=== PATIENT | male | born 1945 | race Caucasian/White ===

== ENCOUNTER 2023-01-22 12:46 | Inpatient (IN) | payer OTHER ==
[~2023-01-22] VITALS: Ht 185.4 cm; Wt 108.0 kg
[2023-01-22 13:00] VITALS: BP_SYST 145; PULSE 93; RESP 18; TEMP 98.3; O2SAT 98
[2023-01-22 13:52] LABS: BASOPHILS % (AUTO) 0.9 % (0.0-2.0); EOSINOPHILS % (AUTO) 0.4 % (0.0-4.0); HEMOGLOBIN 13.3 g/dL (14.0-18.0); LYMPHOCYTES # (AUTO) 0.2 K/uL (1.0-5.5); LYMPHOCYTES % (AUTO) 7.6 % (20.5-51.5); MEAN CORPUSCULAR HEMOGLOBIN 32 pg (27-31); MEAN CORPUSCULAR HGB CONC 34 % (32-36); MEAN CORPUSCULAR VOLUME 95 fL (79.0-98.0); MONOCYTES # (AUTO) 0.2 K/uL (0.0-1.0); MONOCYTES % (AUTO) 7.2 % (1.7-9.3); NEUTROPHILS # (AUTO) 2.3 K/uL (1.8-7.7); NEUTROPHILS % (AUTO) 83.9 % (40.0-70.0); PLATELET COUNT (AUTO) 106 K/uL (130-430); RED BLOOD CELL COUNT(AUTO) 4.11 MIL/uL (4.2-6.2); RED CELL DISTRIBUTION WIDTH 15.5 % (9.0-15.0); WHITE BLOOD COUNT (AUTO) 2.7 K/uL (4.8-10.8)
[2023-01-22 14:11] LABS: ANION GAP 9 (5-15); CALCIUM 8.6 mg/dL (8.4-11.0); CARBON DIOXIDE 26 mmol/L (23-29); CHLORIDE 103 mmol/L (98-107); CREATININE 0.91 mg/dL (0.55-1.30); GLUCOSE 224 mg/dL (74-106); POTASSIUM 4.6 mmol/L (3.5-5.1); SODIUM SERUM 138 mmol/L (136-145); UREA NITROGEN, BLOOD 12 mg/dL (8-21)
[2023-01-22 14:12] LABS: PROTHROMBIN TIME 10.6 SECS (9.5-12.5)
[2023-01-22 14:58] LABS: ALANINE AMINOTRANSFERASE 23 U/L (12-78); ALBUMIN 3.4 g/dL (3.4-4.8); ASPARTATE AMINOTRANSFERASE 20 U/L (10-37); TOTAL BILIRUBIN 0.5 mg/dL (0.0-1.0); TOTAL PROTEIN, SERUM 6.2 g/dL (6.4-8.3)
[2023-01-22 15:00] LABS: INFLUENZA TYPE A Negative (NEGATIVE); INFLUENZA TYPE B NEGATIVE (NEGATIVE)
[2023-01-22] MEDS ORDERED: BENZONATATE 100 MG CAPSULE (TESSALON) PO ONE (15:00)
[2023-01-22] MEDS ORDERED: KETOROLAC TROMETHAMINE 30 MG VIAL IVP ONE (15:00)
[2023-01-22 15:03] LABS: COVID19 ANTIGEN SOFIA FIA POSITIVE (NEGATIVE)
[2023-01-22] MEDS ORDERED: DEXAMETHASONE SOD PHOSPHATE 10 MG/ML VIAL IVP ONE (15:15)
[2023-01-22] MEDS ORDERED: PIPERACILLIN/TAZO 3.375 GM in NS 50 ML IV ONE (15:15)
[2023-01-22] MEDS ORDERED: PIPERACILLIN/TAZOBACTAM 3.375 GM/VIAL (ZOSYN) IV ONE ×2 (15:35→21:43)
[2023-01-22] MEDS ORDERED: ZINC56.713 TP (16:12)
[2023-01-22] MEDS ORDERED: VENL37.55 PO (16:12)
[2023-01-22] MEDS ORDERED: PREDEYE1% RIGHT EYE (16:12)
[2023-01-22] MEDS ORDERED: DONE10TA44 PO (16:12)
[2023-01-22] MEDS ORDERED: POLY15DR31 EACH EYE (16:12)
[2023-01-22] MEDS ORDERED: XALEYE BOTH EYES (16:12)
[2023-01-22] MEDS ORDERED: ALBMDI INH (16:12)
[2023-01-22] MEDS ORDERED: PRAZ5CAP2 PO (16:12)
[2023-01-22] MEDS ORDERED: LACT-225 PO (16:12)
[2023-01-22] MEDS ORDERED: MELA3TAB41 PO (16:12)
[2023-01-22] MEDS ORDERED: INSU100V53 SUBCUT ×2 (16:12)
[2023-01-22] MEDS ORDERED: ALLO100T PO (16:12)
[2023-01-22] MEDS ORDERED: SENN8.6T19 PO (16:12)
[2023-01-22] MEDS ORDERED: METF-1069 PO (16:12)
[2023-01-22] MEDS ORDERED: GABA-534 PO (16:12)
[2023-01-22] MEDS ORDERED: DEXT-150 PO (16:12)
[2023-01-22] MEDS ORDERED: ASPI-1393 PO (16:12)
[2023-01-22] MEDS ORDERED: IPRA3AMP9 INH (16:12)
[2023-01-22] MEDS ORDERED: SSNOVOLOG SUBCUT (16:12)
[2023-01-22] MEDS ORDERED: VITD2000 PO (16:12)
[2023-01-22] MEDS ORDERED: FINA-37 PO (16:12)
[2023-01-22] MEDS ORDERED: CYAN100010 PO (16:12)
[2023-01-22] MEDS ORDERED: LIP20 PO (16:12)
[2023-01-22] MEDS ORDERED: PRED20TA PO (16:12)
[2023-01-22] MEDS ORDERED: DECADRON 4 MG TABLET PO SCH (16:30)
[2023-01-22 20:00] VITALS: BP_SYST 144; PULSE 71; RESP 16; TEMP 96.8; O2SAT 96
[2023-01-22] MEDS ORDERED: INSULIN GLARGINE 100 UNITS/ML, 10 ML VIAL SUBCUT SCH (21:00)
[2023-01-22] MEDS: PIPERACILLIN/TAZO 3.375/DEX-IS 50 ML IV SCH (21:55)
[2023-01-22] MEDS ORDERED: ACETAMINOPHEN 325 MG TABLET PO PRN ×2 (22:00)
[2023-01-22] MEDS ORDERED: MELATONIN 3 MG TABLET PO PRN (22:00)
[2023-01-22] MEDS ORDERED: D5W 1,000 ML IV PRN (22:00)
[2023-01-22] MEDS ORDERED: DEXTROSE 50% JECT 50 ML DISP.SYRIN IVP PRN (22:00)
[2023-01-22] MEDS ORDERED: GLUCOSE (DEXTROSE) ORAL GEL -Adults PO PRN (22:00)
[2023-01-22] MEDS ORDERED: ONDANSETRON HCL 4 MG/2 ML VIAL IVP PRN (22:00)
[2023-01-22] MEDS ORDERED: MELATONIN 3 MG TABLET ONE (23:29)
[2023-01-22] MEDS ORDERED: guaiFENesin 200 MG/10 ML UDC ONE (23:31)
[2023-01-22] MEDS: guaiFENesin/DEXTROMETHORPHAN 118 ML PO PRN (23:37)
[2023-01-22] MEDS: INSULIN LISPRO SLIDING SCALE 100 UNITS/ML, 3 ML VIAL (humaLOG) SUBCUT PRN (23:42)
[2023-01-23] VITALS: BP_SYST 124; PULSE 69; RESP 16; TEMP 97.7; O2SAT 96
[2023-01-23 05:34] LABS: BASOPHILS % (AUTO) 0.6 % (0.0-2.0); HEMATOCRIT 35.5 % (36-54); HEMOGLOBIN 12.1 g/dL (14.0-18.0); LYMPHOCYTES # (AUTO) 0.3 K/uL (1.0-5.5); LYMPHOCYTES % (AUTO) 5.2 % (20.5-51.5); MEAN CORPUSCULAR HEMOGLOBIN 32 pg (27-31); MEAN CORPUSCULAR HGB CONC 34 % (32-36); MEAN CORPUSCULAR VOLUME 94 fL (79.0-98.0); MONOCYTES # (AUTO) 0.4 K/uL (0.0-1.0); MONOCYTES % (AUTO) 7.9 % (1.7-9.3); NEUTROPHILS # (AUTO) 4.6 K/uL (1.8-7.7); NEUTROPHILS % (AUTO) 86.3 % (40.0-70.0); PLATELET COUNT (AUTO) 118 K/uL (130-430); RED CELL DISTRIBUTION WIDTH 15.3 % (9.0-15.0); WHITE BLOOD COUNT (AUTO) 5.3 K/uL (4.8-10.8)
[2023-01-23 06:00] LABS: ALANINE AMINOTRANSFERASE 19 U/L (12-78); ANION GAP 10 (5-15); ASPARTATE AMINOTRANSFERASE 21 U/L (10-37); CALCIUM 8.6 mg/dL (8.4-11.0); CARBON DIOXIDE 25 mmol/L (23-29); CHLORIDE 102 mmol/L (98-107); GLUCOSE 272 mg/dL (74-106); POTASSIUM 4.5 mmol/L (3.5-5.1); SODIUM SERUM 137 mmol/L (136-145); TOTAL BILIRUBIN 0.7 mg/dL (0.0-1.0); UREA NITROGEN, BLOOD 16 mg/dL (8-21)
[2023-01-23] MEDS: PIPERACILLIN/TAZO 3.375/DEX-IS 50 ML IV SCH ×3 (06:20→21:18)
[2023-01-23] MEDS ORDERED: guaiFENesin 200 MG/10 ML UDC ONE (06:31)
[2023-01-23] MEDS: guaiFENesin/DEXTROMETHORPHAN 118 ML PO PRN (06:32)
[2023-01-23] MEDS: INSULIN LISPRO SLIDING SCALE 100 UNITS/ML, 3 ML VIAL (humaLOG) SUBCUT PRN ×4 (07:04→21:28)
[2023-01-23] MEDS ORDERED: guaiFENesin/DEXTROMETHORPHAN 10 ML UDC PO PRN (07:30)
[2023-01-23 08:00] VITALS: BP_SYST 114; PULSE 56; RESP 14; TEMP 97.6; O2SAT 98
[2023-01-23] MEDS ORDERED: INSULIN GLARGINE 100 UNITS/ML, 10 ML VIAL SUBCUT SCH ×4 (09:00→21:00)
[2023-01-23] MEDS: FINASTERIDE 5 MG TABLET (PROSCAR) PO SCH (10:24)
[2023-01-23] MEDS: CHOLECALCIFEROL (VITAMIN D3) 2,000 UNIT TABLET PO SCH (10:24)
[2023-01-23] MEDS: CYANOCOBALAMIN (VITAMIN B-12) 1,000 MCG TABLET PO SCH (10:24)
[2023-01-23] MEDS: Effexor XR 37.5 MG PO SCH (10:25)
[2023-01-23] MEDS: ASPIRIN 81 MG TABLET(ECOTRIN) PO SCH (10:25)
[2023-01-23] MEDS: GABAPENTIN 400 MG CAPSULE PO SCH ×2 (10:26→21:17)
[2023-01-23] MEDS: ALLOPURINOL 100 MG TABLET (ZYLOPRIM) PO SCH (10:26)
[2023-01-23 12:00] VITALS: BP_SYST 119; PULSE 62; RESP 16; TEMP 97.5; O2SAT 95
[2023-01-23 16:00] VITALS: BP_SYST 129; PULSE 74; RESP 16; TEMP 97.8; O2SAT 93
[2023-01-23 20:00] VITALS: O2SAT 97
[2023-01-23] MEDS ORDERED: MELATONIN 3 MG TABLET PO SCH (21:00)
[2023-01-23] MEDS ORDERED: ATORVASTATIN 20 MG TABLET PO SCH (21:00)
[2023-01-23] MEDS ORDERED: DONEPEZIL HCL 5 MG TABLET (ARICEPT) PO SCH (21:00)
[2023-01-23] MEDS ORDERED: PRAZOSIN HCL 1 MG CAPSULE PO SCH (21:00)
[2023-01-24 00:48] VITALS: BP_SYST 151; PULSE 68; RESP 18; TEMP 98.4; O2SAT 96
[2023-01-24 03:00] VITALS: BP_SYST 134; PULSE 73; RESP 20; TEMP 97.2; O2SAT 97
[2023-01-24] MEDS: PIPERACILLIN/TAZO 3.375/DEX-IS 50 ML IV SCH (06:00)
[2023-01-24 06:31] LABS: ANION GAP 10 (5-15); CALCIUM 8.8 mg/dL (8.4-11.0); CARBON DIOXIDE 26 mmol/L (23-29); CHLORIDE 96 mmol/L (98-107); CREATININE 0.94 mg/dL (0.55-1.30); GLUCOSE 291 mg/dL (74-106); POTASSIUM 4.3 mmol/L (3.5-5.1); SODIUM SERUM 132 mmol/L (136-145); UREA NITROGEN, BLOOD 16 mg/dL (8-21)
[2023-01-24] MEDS: INSULIN LISPRO SLIDING SCALE 100 UNITS/ML, 3 ML VIAL (humaLOG) SUBCUT PRN ×2 (07:04→11:51)
[2023-01-24 08:00] VITALS: BP_SYST 121; PULSE 70; RESP 18; TEMP 98.2; O2SAT 100
[2023-01-24 08:13] LABS: BASOPHILS % (AUTO) 0.8 % (0.0-2.0); EOSINOPHILS % (AUTO) 0.1 % (0.0-4.0); HEMATOCRIT 35.6 % (36-54); HEMOGLOBIN 12.2 g/dL (14.0-18.0); LYMPHOCYTES # (AUTO) 0.2 K/uL (1.0-5.5); LYMPHOCYTES % (AUTO) 6.2 % (20.5-51.5); MEAN CORPUSCULAR HEMOGLOBIN 32 pg (27-31); MEAN CORPUSCULAR HGB CONC 34 % (32-36); MEAN CORPUSCULAR VOLUME 94 fL (79.0-98.0); MONOCYTES # (AUTO) 0.2 K/uL (0.0-1.0); MONOCYTES % (AUTO) 7.8 % (1.7-9.3); NEUTROPHILS # (AUTO) 2.2 K/uL (1.8-7.7); NEUTROPHILS % (AUTO) 85.1 % (40.0-70.0); PLATELET COUNT (AUTO) 112 K/uL (130-430); RED BLOOD CELL COUNT(AUTO) 3.79 MIL/uL (4.2-6.2); RED CELL DISTRIBUTION WIDTH 15.3 % (9.0-15.0)
[2023-01-24 08:22] LABS: WHITE BLOOD COUNT (AUTO) 2.6 K/uL (4.8-10.8)
[2023-01-24] MEDS ORDERED: DEC4 PO (10:17)
[2023-01-24] MEDS: CYANOCOBALAMIN (VITAMIN B-12) 1,000 MCG TABLET PO SCH (11:34)
[2023-01-24] MEDS: GABAPENTIN 400 MG CAPSULE PO SCH (11:34)
[2023-01-24] MEDS: FINASTERIDE 5 MG TABLET (PROSCAR) PO SCH (11:34)
[2023-01-24] MEDS: ALLOPURINOL 100 MG TABLET (ZYLOPRIM) PO SCH (11:35)
[2023-01-24] MEDS: ASPIRIN 81 MG TABLET(ECOTRIN) PO SCH (11:35)
[2023-01-24] MEDS: CHOLECALCIFEROL (VITAMIN D3) 2,000 UNIT TABLET PO SCH (11:35)
[2023-01-24 11:46] VITALS: BP_SYST 138; PULSE 71; RESP 19; TEMP 98.3; O2SAT 97
[2023-01-24] MEDS: Effexor XR 37.5 MG PO SCH (11:48)
== END 2023-01-24 12:15 | disposition home or self-care (01) | DRG 871 ==
LOC: SED 12:46 → SMU 16:28
PROVIDERS: ADMIT Internal Medicine; ATTEND Internal Medicine
DX: A41.9 Sepsis, unspecified organism (principal); J18.9 Pneumonia, unspecified organism; U07.1 COVID-19; C85.90 Non-Hodgkin lymphoma, unspecified, unspecified site; I10 Essential (primary) hypertension; E11.9 Type 2 diabetes mellitus without complications; Z79.4 Long term (current) use of insulin; Z79.899 Other long term (current) drug therapy
CPT/HCPCS: 36415; 71045; 80048; 80053; 82962; 83605; 83880; 84484; 85025; 85610-TC; 85730-TC; 87040; 93005; 96365; 96375; 99285; J1100; J1815; J1885; J2543; J8540